=== PATIENT | male | born 1995 | race Caucasian/White ===

== ENCOUNTER → 2021-09-28 12:10 | Outpatient (CLI) | payer BC, SELFPAY ==
--- NOTE | ~2021-09-28 | XR_ITS ---
EXAMINATION: XR knee RT 3V DATE: 09/28/2021 12:28 INDICATION: Right knee pain. TECHNIQUE: 3 views of right knee including standing views were obtained. COMPARISON: None. FINDINGS: Bone alignment is normal. No fracture. There is mild tricompartmental osteoarthritis. There are changes of anterior cruciate ligament reconstruction. There is a moderate-sized knee joint effus ion with loose bodies. Calcifications posterior to the knee are likely loose bodies in a Maza's cyst . IMPRESSION: 1. Mild right knee osteoarthritis. 2. Moderate-sized knee joint effusion with loose bodies. Reviewed, dictated and finalized at location A. ODUPLICATOR OPERATOR
== END ==
PROVIDERS: Visit Provider Nurse Practitioner
DX: M17.11 Unilateral primary osteoarthritis, right knee (principal); M25.461 Effusion, right knee; M23.41 Loose body in knee, right knee
CPT/HCPCS: 73562

== ENCOUNTER → 2021-10-07 16:56 | Outpatient (CLI) | payer BC, SELFPAY ==
--- NOTE | ~2021-10-07 | MR_ITS ---
EXAMINATION: MR knee RT wo con DATE: 10/07/2021 18:15 INDICATION: Right knee pain TECHNIQUE: Magnetic resonance imaging (MRI) of the right knee was performed without intravenous contr ast. Sequences included coronal PD-weighted FSE, coronal PD-weighted FS FSE, sagittal T2-weighted FS E, sagittal PD-weighted FS FSE and axial PD weighted fat saturated FSE. COMPARISON: None. FINDINGS: Medial compartment: Complex tear involving the posterior body and posterior horn of the medial meniscus. Reticular cartil age the medial compartment is relatively preserved with mild chondral surface regularity along the la teral margin of the central weightbearing medial femoral condyle. Small marginal osteophytes are pres ent. Lateral compartment: Posterior extrusion of the posterior horn of the lateral meniscus. Complex tear of the body and poste rior horn. Deep chondral ulceration with mild underlying cortical irregularity and subarticular signa l change along the posterior aspect of the lateral tibial plateau and at the central weightbearing la teral femoral condyle. Partial thickness fissuring along the anterior weightbearing lateral femoral c ondyle. Small to moderate size marginal osteophytes are present. Patellofemoral compartment: Deep chondral fissuring without degenerative subchondral changes at the caudal aspect of the patellar apical ridge and at the caudal aspect of the trochlear groove and medial trochlea. Ligaments and tendons: Posterior cruciate ligament is normal. Anterior cruciate ligament reconstruction with graft failure.. The medial collateral ligament and fibular collateral ligament complex are normal. The extensor mech anism is normal. The visualized medial and lateral hamstring tendons as well as the iliotibial band a re normal. Fluid: Small knee joint effusion with scattered mild synovitis. Prior multiple loose osteochondral bodies in the posterior recesses of the knee as well as within a small Maza's cyst. Additional loose body maxx sissy heterotopic ossification anterior to the tibial tunnel of the failed ACL graft. Osseous/other: No fracture or abnormal marrow replacing process. There is edema in the deep and superficial suprapat ellar fat pads which could be seen with fat pad impingement syndrome. IMPRESSION: 1. Anterior cruciate ligament reconstruction with graft failure. 2. Complex tears of the medial and lateral menisci. 3. 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 4. Small knee joint effusion and small Maza's cyst both with loose osteochondral bodies. Reviewed, dictated and finalized at location B. ING INSPECTOR IMPRESSION: 1. Anterior cruciate ligament reconstruction with graft failure. 2. Complex tears of the medial and lateral menisci. 3. Mild tricompartmental osteoarthritis with high-grade chondromalacia in the l ateral compartment and moderate grade chondromalacia in the distal femoral to l adriano degree medial compartment. 4. Small knee joint effusion and small Maza's cyst both with loose osteochondr al bodies.
== END ==
PROVIDERS: Visit Provider Nurse Practitioner
DX: M17.11 Unilateral primary osteoarthritis, right knee (principal); M25.461 Effusion, right knee; S83.231A Complex tear of medial meniscus, current injury, right knee, initial encounter; S83.511A Sprain of anterior cruciate ligament of right knee, initial encounter; S83.271A Complex tear of lateral meniscus, current injury, right knee, initial encounter; X58.XXXA Exposure to other specified factors, initial encounter
CPT/HCPCS: 73721